=== PATIENT | female | born 1990 | race Caucasian/White ===

== ENCOUNTER 2019-04-24 00:03 | Emergency (ER) | payer SELFPAY ==
[~2019-04-24] VITALS: Ht 152.4 cm; Wt 63.6 kg
[~2019-04-24 00:03] MED LIST: IBUPROFEN600 MG PO; PERCOCET 10/3251 TA1 PO; PRENAVITE1 TAB PO
[2019-04-24 00:06] VITALS: Ht 152.4 cm; Wt 63.6 kg
[2019-04-24] MEDS ORDERED: VOLTAREN75 MG PO (00:41)
[2019-04-24 01:12] VITALS: BP 144/93
== END 2019-04-24 01:12 | disposition home or self-care (01) ==
LOC: D.ER 00:03
DX: M25.532 Pain in left wrist (principal); S63.502A Unspecified sprain of left wrist, initial encounter; W19.XXXA Unspecified fall, initial encounter; Y93.89 Activity, other specified; Y92.9 Unspecified place or not applicable